=== PATIENT | male | born 1985 | race African-American/Black ===

== ENCOUNTER 2018-05-15 08:43 | Emergency (ER) | payer SELFPAY ==
[~2018-05-15] VITALS: Ht 185.4 cm; Wt 122.5 kg
--- OUTSIDE RECORDS SUMMARY | 2018-05-15 08:49 | XMS REPORT ---
Author Author Clayton Brush [facility] eClinicalWorks Address Unknown Phone Unavailable Care Team Providers Care Agronomist Name Role Phone Clayton Brush CP Unavailable Allergies, Adverse Reactions, Alerts Substance Reaction Event Type N.K.D.A. Info Not Available Non Drug Allergy Problems Problem Type Condition Code Onset Dates Condition Status Assessment Hypertension I10 Active Assessment Elevated blood sugar R73.9 Active Problem Hyperlipidemia E78.5 Active Assessment Hyperlipidemia E78.5 Active Assessment Type 2 diabetes mellitus with hyperglycemia E11.65 Active Medications Medication Code System Code Instructions Start Date End Date Status Dosage MetFORMIN HCl ER [facility] [address]-40 750 MG Orally Once a day August 22, 2015 1 tab(s) Ibuprofen [facility] [address]-31 800 MG Orally Three times a day 1 tablet Amlodipine Besylate [facility] [address]-07 10 mg Orally Once a day 1 tablet Lisinopril-Hydrochlorothiazide [facility] [address]-61 10-12.5 MG Orally Once a day August 22, 2015 1 tablet Lovastatin [facility] [address]-47 20 MG Orally Once a day August 22, 2015 1 tablet with a meal Procedures Procedure Coding System Code Date ESTAB PT LEVEL III CPT-4 58330 August 22, 2015 GLYCOHEMOGLOBIN HGAC CPT-4 13260 August 22, 2015 Vital Signs Date/Time: August 22, 2015 Temperature 98.0 F Weight 328.0 lbs Height 72 in Pain Scale 0 0-10 BMI 44.48 Index Blood Pressure Diastolic 112 mm Hg Blood Pressure Systolic 190 mm Hg Results Name Result Date Reference Range Unit Abnormality Flag Hemoglobin A1c, Fingerstick (waived) ----Hemoglobin A1c 7.9 [id number] 4.0 - 5.6 % Summary Purpose eClinicalWorks Submission
--- OUTSIDE RECORDS SUMMARY | 2018-05-15 08:49 | XMS REPORT ---
Author Author Clayton Brush [facility] eClinicalWorks Address Unknown Phone Unavailable Care Team Providers Care Power Transformer Inspector Name Role Phone Clayton Brush CP Unavailable Allergies, Adverse Reactions, Alerts Substance Reaction Event Type N.K.D.A. Info Not Available Non Drug Allergy Problems Problem Type Condition Code Onset Dates Condition Status Problem Hypertension I10 Active Problem Type 2 diabetes mellitus with hyperglycemia E11.65 Active Problem Diabetes E11.9 Active Assessment Hyperlipidemia E78.5 Active Assessment Type 2 diabetes mellitus with hyperglycemia E11.65 Active Problem Hyperlipidemia E78.5 Active Assessment Hypertension I10 Active Medications Medication Code System Code Instructions Start Date End Date Status Dosage Lisinopril-Hydrochlorothiazide [facility] [place] 2[place] [address]-71 10-12.5 MG Orally Once a day August 22, 2015 1 tablet Lovastatin [facility] [place] 2[place] [address]-41 20 MG Orally Once a day August 22, 2015 1 tablet with a meal Amlodipine Besylate [facility] [place] 2] [address]-94 10 mg Orally Once a day 1 tablet Lisinopril-Hydrochlorothiazide [facility] [place]NOTE 2] [address]-40 20-12.5 MG Orally Once a day 2 tab(s) MetFORMIN HCl ER [facility] [place]NOTE 2] [address]-85 750 MG Orally Once a day August 22, 2015 1 tab(s) Ibuprofen [facility] [place]NOTE 2] [address]-74 800 MG Orally Three times a day 1 tablet Procedures Procedure Coding System Code Date ESTAB PT LEVEL III CPT-4 35086 September 20, 2015 Vital Signs Date/Time: September 20, 2015 Temperature 97.2 F Weight 325.0 lbs Height 72 in Pain Scale 0 0-10 BMI 44.07 Index Blood Pressure Diastolic 130 mm Hg Blood Pressure Systolic 175 mm Hg Results No Known Results Summary Purpose eClinicalWorks Submission
--- OUTSIDE RECORDS SUMMARY | 2018-05-15 08:49 | XMS REPORT ---
Author Author Ronna Loni Organization [facility] Address [address], [place] [id number] Care Team Providers Care Assistant [employer] Delivery Name Role Phone Loni Friend Unavailable PROBLEMS Type Condition ICD9-CM Code [id number] Code Onset Dates Condition Status SNOMED Code Problem Diabetes E11.9 Active 464031563 Problem Hypertension I10 Active 53319356 Assessment Hypertension I10 Jan, Active 18299842 Assessment Encounters for administrative purpose Z02.9 Jan, Active Problem Type 2 diabetes mellitus with hyperglycemia E11.65 Active 087421049856603 Problem Hyperlipidemia E78.5 Active 86426369 ALLERGIES Substance Reaction Event Type Date Status N.K.D.A. Unknown Non Drug Allergy Jan, Unknown SOCIAL HISTORY No smoking Hx information available PLAN OF CARE VITAL SIGNS Height 72 in 2016-02-22 Weight 324 lbs 2016-02-22 Temperature 96.8 degrees Fahrenheit 2016-02-22 BMI 43.94 kg/m2 2016-02-22 Blood pressure systolic 193 mm Hg 2016-02-22 Blood pressure diastolic 114 mm Hg 2016-02-22 MEDICATIONS Medication Instructions Dosage Frequency Start Date End Date Duration Status Lisinopril-Hydrochlorothiazide 10-12.5 MG Orally Once a day 2 tablets 24h Jul, 30 day(s) Active Ibuprofen 800 MG Orally Three times a day 1 tablet 8h 30 days Active Clonidine HCl 0.2 MG Orally One time, now as directed Jan, 1 time Active Amlodipine Besylate 10 mg Orally Once a day 1 tablet 24h 30 days Active Aspirin 325 MG Orally One time, now 1 tablet Jan, 1 time Active Lovastatin 20 MG Orally Once a day 1 tablet with a meal 24h Jul, 30 day(s) Active MetFORMIN HCl ER 750 MG Orally Once a day 1 tab(s) 24h Jul, 30 day(s) Active RESULTS No Results PROCEDURES Procedure Date Ordered Related Diagnosis Body Site ESTAB PT LEVEL IV Feb 22, 2016 IMMUNIZATIONS No Known Immunizations
--- NOTE | 2018-05-15 09:05 | NUR ---
PT TAKEN BACK TO ROOM ON CELL PHONE.
--- NOTE | 2018-05-15 09:35 | ED General ---
General Chief Complaint: Cardiac/General Problems Stated Complaint: HIGH BP Nursing Triage Note: PT CO OF HYPERTENSION, STATES TOOK B/P AT [facility] AND WAS HIGH, PT STATES IS PRESCRIBED PO MEDS FOR B/P BUT IS OUT AND IS NEW IN [place]OWN AND CAN NOT AFFORD MEDS OR DR KENIA. PT INFORMED OF [facility] FOR [facility] INCOME MEDICAL NEEDS Nursing Sepsis Screen: No Definite Risk Source of Information: Patient Exam Limitations: No Limitations History of Present Illness Date Seen by Provider: May 15, 2018 Time Seen by Provider: 09:21 Initial Comments Patient resents to ER by private conveyance with chief complaint of mild shortness of breath and also his blood pressures been high for the past several months. He just recently moved to the area and says that the was on amlodipine and some other blood pressure medicines but he can't afford them and does not have a primary care doctor yet. He is not having any chest pain but his shortness of breath is related to his asthma he has not had an albuterol inhaler for several months. He is not coughing anything up no fevers chills nausea vomiting diarrhea. He does have a history of diabetes. Allergies and Home Medications Allergies Coded Allergies: No Known Drug Allergies (Unverified , 05/15/18) Home Medications No Active Prescriptions or Reported Meds Patient Home Medication List Home Medication List Reviewed: Yes Review of Systems Review of Systems Constitutional: No chills, No fever, No malaise EENTM: No ear discharge, No ear pain Respiratory: No cough, No phlegm; short of breath, wheezing Cardiovascular: No chest pain, No edema Gastrointestinal: No abdominal pain, No nausea, No vomiting Genitourinary: No discharge, No dysuria Past Kwlqfvj-Pedlvc-Ymjhnc Hx Patient Social History Alcohol Use: Denies Use Recreational Drug Use: No Smoking Status: Never a Smoker Recent Foreign Travel: No Contact w/Someone Who Travel: No Recent Infectious Disease Expo: No Recent Hopitalizations: No Physical Abuse: No Sexual Abuse: No Past Medical History Surgeries: No Respiratory: Yes Asthma Cardiac: Yes Hypertension Neurological: No Genitourinary: No Gastrointestinal: No Musculoskeletal: No Endocrine: No HEENT: No Cancer: No Psychosocial: No Integumentary: No Blood Disorders: No Physical Exam Vital Signs Vital Signs - First Documented 05/15/18 05/15/18 09:05 10:00 Temp 97.3 Pulse 96 Resp 18 B/P (MAP) 208/151 (170) Pulse Ox 97 O2 Delivery Room Air Capillary Refill : Less Than 3 Seconds Height, Weight, BMI Height: 6'1.00" Weight: 270lbs. oz. 122.202667xl; BMI Method:Stated General Appearance: No Apparent Distress, WD/WN Eyes: Bilateral Eye Normal Inspection, Bilateral Eye PERRL, Bilateral Eye EOMI HEENT: PERRL/EOMI, Pharynx Normal, Moist Mucous Membranes Neck: Full Range of Motion, Normal Inspection, Non Tender, Supple Respiratory: No Accessory Muscle Use, No Respiratory Distress, Decreased Breath Sounds, Wheezing (scant) Cardiovascular: Regular Rate, Rhythm, No Edema, Normal Peripheral Pulses Gastrointestinal: Normal Bowel Sounds, Non Tender, Soft Progress/Results/Core Measures Suspected Sepsis Recent Fever Within 48 Hours: No Infection Criteria Present: None New/Unexplained Altered Menta: No Sepsis Screen: No Definite Risk SIRS Temperature:97.3 Pulse: 96 Respiratory Rate: 18 Blood Pressure 208 /151 Mean: 170 Results/Orders My Orders Orders - RANJEET SNYDER Amlodipine Tablet (Norvasc Tablet) (05/16/18 09:00) Lisinopril Tablet (Zestril Tablet) (05/15/18 09:45) Albuterol/Ipra Inhalation Soln (Duoneb I (05/15/18 09:45) Svn Small Volume Nebulizer (05/15/18 09:31) Amlodipine Tablet (Norvasc Tablet) (05/15/18 09:41) Amlodipine Tablet (Norvasc Tablet) (05/15/18 09:43) Medications Given in ED Current Medications Medications Dose Ordered Sig/Yordan Route Start Time Stop Time Status Last Admin Dose Admin Albuterol/ Ipratropium 3 ml ONCE ONCE INH 05/15/18 09:45 05/15/18 09:46 DC 05/15/18 10:00 3 ML Lisinopril 20 mg ONCE ONCE PO 05/15/18 09:45 05/15/18 09:46 DC 05/15/18 09:54 20 MG Vital Signs/I&O 05/15/18 05/15/18 09:05 10:00 Temp 97.3 Pulse 96 Resp 18 B/P (MAP) 208/151 (170) Pulse Ox 97 97 O2 Delivery Room Air Capillary Refill : Less Than 3 Seconds Blood Pressure Mean: 170 Progress Note #1: Time: 09:34 Progress Note B/P has come down from 220/160 down to 197/147. Plan to going give him some lisinopril and amlodipine same a prescription for that outpatient. He is asymptomatic hypertension at this point. We'll want to lower this over days to weeks. We've recommended him to [facility]. Finally we will give him a DuoNeb breathing treatment and reexamine him. His breath sounds are not very adventitious on examination. We can make sure he has a prescription for a albuterol inhaler. Progress Note #2: Time: 11:44 Progress Note Blood pressure is 182/124. Patient feels like his shortness of breath has gone away after the nebulized DuoNeb. He does not have a nebulizer at home so we'll send him an MDI albuterol inhaler. We will set him up with some amlodipine and lisinopril 5 and 20 respectively and follow-up next week with [facility]. He is in agreement with this plan. Departure Impression Primary Impression: Hypertension Qualified Codes: I10 - Essential (primary) hypertension Additional Impression: Asthma Qualified Codes: J45.909 - Unspecified asthma, uncomplicated Disposition: 01 HOME, SELF-CARE Condition: Improved Departure-Patient Inst. Decision time for Depature: 11:45 Referrals: NO,LOCAL PHYSICIAN (PCP) Primary Care Physician [facility] Patient Instructions: High Blood Pressure (DC) Add. Discharge Instructions: Use the inhaler 2 puffs every 4 hours as needed for wheezing or coughing or feeling short of breath. 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 All discharge instructions reviewed with patient and/or family. Voiced understanding. Scripts Lisinopril (Lisinopril) 20 Mg Tablet 20 MG PO DAILY for 14 Days, #14 TAB 0 Refills Prov: RANJEET SNYDER 05/15/18 Amlodipine Besylate (Amlodipine Besylate) 5 Mg Tablet 5 MG PO DAILY for 14 Days, #14 TAB 0 Refills Prov: RANJEET SNYDER 05/15/18 Albuterol Sulfate (PROAIR HFA) 1 Puff Puff 2 PUFF IH Q4H, #1 EACH 0 Refills 1 PUFF = 90 MCG Prov: RANJEET SNYDER 05/15/18 Copy Copies To 1: THEODORA MIMS DO RANJEET SNYDER May 15, 2018 09:35
[2018-05-15] MEDS ORDERED: amLODIPine 5 MG (NORVASC) TAB ONE ×2 (09:41→09:43)
[2018-05-15] MEDS ORDERED: lisINopril 20 MG (PRINIVIL) TABLET PO ONE (09:45)
[2018-05-15] MEDS ORDERED: RT-ALBUTEROL/IPRATROPIUM 3 ML (DUONEB) VIAL INH ONE (09:45)
[2018-05-15] MEDS ORDERED: RT-ALBUINH IH (11:47)
[2018-05-15] MEDS ORDERED: LISI-552 PO (11:48)
[2018-05-15] MEDS ORDERED: AMLO5TAB9 PO (11:48)
[2018-05-15 11:55] VITALS: BP 197/145
[2018-05-16] MEDS ORDERED: amLODIPine 5 MG (NORVASC) TAB PO SCH (09:00)
== END 2018-05-15 11:56 | disposition home or self-care (01) ==
LOC: ER 08:45
DX: I10 Essential (primary) hypertension (principal); J45.909 Unspecified asthma, uncomplicated; E11.9 Type 2 diabetes mellitus without complications; Z91.14 Patient's other noncompliance with medication regimen
CPT/HCPCS: 94640; 99283

== ENCOUNTER 2018-05-21 14:06 | Emergency (ER) | payer SELFPAY ==
[~2018-05-21] VITALS: Ht 185.4 cm; Wt 122.5 kg
[~2018-05-21 14:06] MED LIST: AMLO5TAB9 PO; LISI-552 PO; RT-ALBUINH IH
--- NOTE | 2018-05-21 14:15 | ED General ---
General Stated Complaint: KIDNEY PROBLEMS Source of Information: Patient Exam Limitations: No Limitations History of Present Illness Date Seen by Provider: May 21, 2018 Time Seen by Provider: 14:13 Initial Comments To ER per private vehicle with reports of elevated creatinine. He was diagnosed with "kidney problems" about a year ago in [place] where he was from. He since moved down here, followed up with a sticking at [facility] yesterday , had labs drawn and was found to have a creatinine of 6.58 when those labs were resulted today. He states he overall feels pretty well, he does have some swelling to both ankles, occasional shortness of breath. Timing/Duration: 1-2 Days Severity: Moderate Associated Systoms: Denies Symptoms Allergies and Home Medications Allergies Coded Allergies: No Known Drug Allergies (Unverified , 05/15/18) Home Medications Albuterol Sulfate 1 Puff Puff, 2 PUFF IH Q4H 1 PUFF = 90 MCG Prescribed by: RANJEET SNYDER on 05/15/18 1147 Amlodipine Besylate 5 Mg Tablet, 5 MG PO DAILY Prescribed by: RANJEET SNYDER on 05/15/18 1148 Furosemide 20 Mg Tablet, 20 MG PO DAILY Prescribed by: CAYLA KUMAR on 05/21/18 1527 Lisinopril 20 Mg Tablet, 20 MG PO DAILY Prescribed by: RANJEET SNYDER on 05/15/18 1148 Patient Home Medication List Home Medication List Reviewed: Yes Review of Systems Review of Systems Constitutional: see HPI EENTM: see HPI Respiratory: see HPI, dyspnea on exertion Cardiovascular: no symptoms reported Genitourinary: no symptoms reported Musculoskeletal: no symptoms reported Skin: no symptoms reported Psychiatric/Neurological: No Symptoms Reported Hematologic/Lymphatic: No Symptoms Reported Immunological/Allergic: no symptoms reported Past Xcsgilr-Lspshy-Krruwq Hx Patient Social History Recent Hopitalizations: No Past Medical History Surgeries: No Respiratory: Yes Asthma Cardiac: Yes Hypertension Neurological: No Genitourinary: No Gastrointestinal: No Musculoskeletal: No Endocrine: No HEENT: No Cancer: No Psychosocial: No Integumentary: No Blood Disorders: No Physical Exam Vital Signs Vital Signs - First Documented 05/21/18 14:10 Temp 97.4 Pulse 104 Resp 18 B/P (MAP) 207/151 (169) Pulse Ox 100 Capillary Refill : Height, Weight, BMI Height: 6'1.00" Weight: 270lbs. oz. 122.946826rj; BMI Method:Stated General Appearance: No Apparent Distress, WD/WN Eyes: Bilateral Eye Normal Inspection, Bilateral Eye PERRL, Bilateral Eye EOMI HEENT: PERRL/EOMI, TMs Normal Neck: Full Range of Motion, Normal Inspection Respiratory: No Accessory Muscle Use, No Respiratory Distress Cardiovascular: Regular Rate, Rhythm, Normal Peripheral Pulses Gastrointestinal: Normal Bowel Sounds, Non Tender, Soft Extremity: Normal Capillary Refill, Normal Inspection, Other (trace pitting edema bilateral lower extremities) Neurologic/Psychiatric: Alert, Oriented x3, No Motor/Sensory Deficits Skin: Normal Color, Warm/Dry Progress/Results/Core Measures Suspected Sepsis SIRS Temperature: Pulse: Respiratory Rate: Laboratory Tests 05/21/18 14:20: White Blood Count 9.2 Blood Pressure / Mean: Laboratory Tests 05/21/18 14:20: Creatinine 6.63H, Platelet Count 365, Total Bilirubin 0.4 Results/Orders Lab Results Laboratory Tests Test 05/21/18 14:20 Range/Units White Blood Count 9.2 4.3-11.0 10^3/uL Red Blood Count 4.36 4.35-5.85 10^6/uL Hemoglobin 12.7 L 13.3-17.7 G/DL Hematocrit 38 L 40-54 % Mean Corpuscular Volume 87 80-99 FL Mean Corpuscular Hemoglobin 29 25-34 PG Mean Corpuscular Hemoglobin Concent 34 32-36 G/DL Red Cell Distribution Width 15.0 H 10.0-14.5 % Platelet Count 365 130-400 10^3/uL Mean Platelet Volume 11.7 H 7.4-10.4 FL Neutrophils (%) (Auto) 51 42-75 % Lymphocytes (%) (Auto) 36 12-44 % Monocytes (%) (Auto) 8 0-12 % Eosinophils (%) (Auto) 4 0-10 % Basophils (%) (Auto) 1 0-10 % Neutrophils # (Auto) 4.7 1.8-7.8 X 10^3 Lymphocytes # (Auto) 3.3 1.0-4.0 X 10^3 Monocytes # (Auto) 0.8 0.0-1.0 X 10^3 Eosinophils # (Auto) 0.3 0.0-0.3 10^3/uL Basophils # (Auto) 0.1 0.0-0.1 10^3/uL Sodium Level 143 135-145 MMOL/L Potassium Level 4.0 3.6-5.0 MMOL/L Chloride Level 112 H 98-107 MMOL/L Carbon Dioxide Level 22 21-32 MMOL/L Anion Gap 9 5-14 MMOL/L Blood Urea Nitrogen 47 H 7-18 MG/DL Creatinine 6.63 H 0.60-1.30 MG/DL Estimat Glomerular Filtration Rate 12 BUN/Creatinine Ratio 7 Glucose Level 116 H 70-105 MG/DL Calcium Level 9.7 8.5-10.1 MG/DL Corrected Calcium 10.0 8.5-10.1 MG/DL Total Bilirubin 0.4 0.1-1.0 MG/DL Aspartate Amino Transf (AST/SGOT) 14 5-34 U/L Alanine Aminotransferase (ALT/SGPT) 13 0-55 U/L Alkaline Phosphatase 78 40-136 U/L Total Protein 7.7 6.4-8.2 GM/DL Albumin 3.6 3.2-4.5 GM/DL My Orders Orders - CAYLA KUMAR APRN Cbc With Automated Diff (05/21/18 14:09) Comprehensive Metabolic Panel (05/21/18 14:09) Ua Culture If Indicated (05/21/18 14:09) Iv Heplock-Insert (Order) (05/21/18 14:09) Chest 1 View, Ap/Pa Only (05/21/18 14:09) Ekg Tracing (05/21/18 14:09) Continuous Ekg Monitoring (05/21/18 14:09) Amlodipine Tablet (Norvasc Tablet) (05/21/18 14:30) Medications Given in ED Current Medications Medications Dose Ordered Sig/Yordan Route Start Time Stop Time Status Last Admin Dose Admin Amlodipine Besylate 10 mg ONCE ONCE PO 05/21/18 14:30 05/21/18 14:31 DC 05/21/18 14:42 10 MG Vital Signs/I&O 05/21/18 14:10 Temp 97.4 Pulse 104 Resp 18 B/P (MAP) 207/151 (169) Pulse Ox 100 Capillary Refill : Diagnostic Imaging Diagonstic Imaging: Xray Plain Films/CT/US/NM/MRI: chest Comments NAME: RIRI GOEL [facility] REC#: [id number] PT STATUS: REG ER : 1985 PHYSICIAN: CAYLA KUMAR APRN ADMIT DATE: 05/21/18/ER Draft Date of Exam:05/21/18 CHEST 1 VIEW, AP/PA ONLY INDICATION: Shortness of breath. TIME OF EXAM: 02:22 p.m. FINDINGS: The heart appears to be mildly enlarged; however, this could be secondary to portable technique. No infiltrate is detected. The pulmonary vascularity is normal. No infiltrate, effusion or pneumothorax is detected. IMPRESSION: No acute cardiopulmonary process is detected. Dictated on workstation # [id number] Dict: 05/21/18 1443 Trans: 05/21/18 1455 [facility] 0427-3540 Interpreted by: YOSEF BENEDICT MD Electronically signed by: Departure Communication (Admissions) Patient's blood pressure was markedly elevated here at 220/160. He states he's been very hypertensive for quite some time even as far back as when he was in [place]., has been unable to afford his medications. I called [place] [facility], if we fax his face sheet and labs to him, they're clinical audiologist will review this and they will call the patient after Friday to make an appointment for follow-up. At this time he does not have any indications for transfer for emergent dialysis, no fluid overload hyperkalemia or signs of uremic encephalopathy as such we'll discharge home with antihypertensive medication, follow-up with [facility]. I will also notify [facility] of this plan. He was given a prescription for lisinopril and amlodipine about 6 days ago here. We will have him continue that. Ill add a loop diuretic. OLGA LIDIA Peck at [facility] notified of plan. 1542-I discussed the case with Dr. May student dean from [facility]. Recommends stopping the lisinopril. Use minoxidil 5 mg by mouth twice a day in addition to the Norvasc and Lasix 40 mg daily, repeat labs on Friday, no NSAID use. Her office will call him on Friday for an appointment time on Friday. Impression Primary Impression: Chronic kidney disease Qualified Codes: N18.9 - Chronic kidney disease, unspecified Additional Impression: Hypertension Qualified Codes: I10 - Essential (primary) hypertension Disposition: HOME, SELF-CARE Condition: Stable Departure-Patient Inst. Decision time for Depature: 15:26 Referrals: NO,LOCAL PHYSICIAN (PCP) Primary Care Physician Patient Instructions: Chronic Kidney Disease, High Blood Pressure (DC) Add. Discharge Instructions: I spoke with Dr. May, a kidney specialist in [place]. Her office will call you Friday to make an appointment to be seen on Friday. In the meantime, stop taking the lisinopril. You should have repeat blood work done here on Friday, your appointment will be Friday. We are starting to new medications in the meantime, minoxidil 5 mg twice a day and Lasix 40 mg daily in addition to the Norvasc. Stop taking the lisinopril. Do not use any NSAIDs such as meloxicam , naproxen, aspirin, ibuprofen Celebrex. Return to ER for any concerns. Scripts Minoxidil (Minoxidil) 10 Mg Tab 0.5 MG PO BID, #30 TAB Prov: CAYLA KUMAR APRN 05/21/18 Lisinopril (Lisinopril) 20 Mg Tablet 20 MG PO DAILY for 30 Days, #14 TAB 0 Refills take 40mg daily Prov: CAYLA KUMAR APRN 05/21/18 Furosemide (Lasix) 20 Mg Tablet 20 MG PO DAILY, #10 TAB Prov: CAYLA KUMAR APRN 05/21/18 Copy Copies To 1: THEODORA MIMS PETER J APRN May 21, 2018 14:15
[2018-05-21 14:30] LABS: BASOPHILS # (AUTO) 0.1 10^3/uL (0.0-0.1); BASOPHILS % (AUTO) 1 % (0-10); EOSINOPHILS # (AUTO) 0.3 10^3/uL (0.0-0.3); EOSINOPHILS % (AUTO) 4 % (0-10); HEMATOCRIT 38 % (40-54); HEMOGLOBIN 12.7 G/DL (13.3-17.7); LYMPHOCYTES # (AUTO) 3.3 X 10^3 (1.0-4.0); LYMPHOCYTES % (AUTO) 36 % (12-44); MEAN CORPUSCULAR HEMOGLOBIN 29 PG (25-34); MEAN CORPUSCULAR HGB CONC 34 G/DL (32-36); MEAN CORPUSCULAR VOLUME 87 FL (80-99); MEAN PLATELET VOLUME 11.7 FL (7.4-10.4); MONOCYTES # (AUTO) 0.8 X 10^3 (0.0-1.0); MONOCYTES % (AUTO) 8 % (0-12); NEUTROPHILS # (AUTO) 4.7 X 10^3 (1.8-7.8); NEUTROPHILS % (AUTO) 51 % (42-75); PLATELET COUNT 365 10^3/uL (130-400); WHITE BLOOD COUNT 9.2 10^3/uL (4.3-11.0)
[2018-05-21] MEDS ORDERED: amLODIPine 10 MG (NORVASC) TAB PO ONE (14:30)
[2018-05-21 14:46] LABS: ALBUMIN 3.6 GM/DL (3.2-4.5); BILIRUBIN,TOTAL 0.4 MG/DL (0.1-1.0); CALCIUM 9.7 MG/DL (8.5-10.1); CREATININE SERUM 6.63 MG/DL (0.60-1.30); TOTAL PROTEIN 7.7 GM/DL (6.4-8.2)
--- NOTE | 2018-05-21 14:56 | Diagnostic Imaging Report ---
INDICATION: Shortness of breath. TIME OF EXAM: 02:22 p.m. FINDINGS: The heart appears to be mildly enlarged; however, this could be secondary to portable technique. No infiltrate is detected. The pulmonary vascularity is normal. No infiltrate, effusion or pneumothorax is detected. IMPRESSION: No acute cardiopulmonary process is detected. Dictated by: Dictated on workstation # [id number]
[2018-05-21] MEDS ORDERED: FURO-125 PO (15:27)
[2018-05-21] MEDS ORDERED: LISI-552 PO (15:44)
[2018-05-21] MEDS ORDERED: NF-MINO10T PO (15:44)
[2018-05-21 16:00] LABS: BILIRUBIN,URINE NEGATIVE (NEGATIVE); CLARITY,URINE CLEAR; COLOR,URINE YELLOW; GLUCOSE, URINE (UA) NEGATIVE (NEGATIVE); KETONES,URINE NEGATIVE (NEGATIVE); LEUKOCYTE ESTERASE ,URINE NEGATIVE (NEGATIVE); NITRITE,URINE NEGATIVE (NEGATIVE); PH,URINE 6 (5-9); PROTEIN,URINE 4+ (NEGATIVE); UROBILINOGEN,URINE NORMAL (NORMAL)
[2018-05-21 16:04] VITALS: BP 176/129
[2018-05-21 16:14] LABS: BACTERIA,URINE FEW /HPF
== END 2018-05-21 16:03 | disposition home or self-care (01) ==
LOC: EDUNIT# 14:06 → ER 14:07
DX: I12.9 Hypertensive chronic kidney disease with stage 1 through stage 4 chronic kidney disease, or unspecified chronic kidney disease (principal); N18.9 Chronic kidney disease, unspecified; J45.909 Unspecified asthma, uncomplicated
CPT/HCPCS: 36415; 71045; 80053; 81000; 85025; 87088; 93005

== ENCOUNTER 2018-05-24 15:21 | Emergency (ER) | payer SELFPAY ==
[~2018-05-24] VITALS: Ht 185.4 cm; Wt 124.7 kg
[~2018-05-24 15:21] MED LIST changes: +FURO-125 PO; +NF-MINO10T PO
--- NOTE | 2018-05-24 15:21 | NUR ---
1520 STROKE ACTIVATION 1525 PT TO CART AND TO CT. 1430 LAST KNOWN WELL TIME
--- NOTE | 2018-05-24 15:42 | ED Neurological Problem ---
General Stated Complaint: STROKE Source: patient, EMS Exam Limitations: no limitations History of Present Illness Date Seen by Provider: May 24, 2018 Time Seen by Provider: 15:15 Initial Comments Patient presents to the ER by EMS with chief complaint of abrupt onset of right sided weakness inability to stand up and slurred garbled speech. No facial droop per EMS. His right hand and right leg were unable to move spontaneously. He does have a history of very high lead pressure for which she was started on lisinopril a few weeks ago in the ER. He follows up at [facility] once and had plans to do dialysis temporarily. He also has a history of diabetes. No history of stroke or heart attacks. Significant family history for diabetes and heart attacks. He was sitting at a [employer] in the dining room and was unable to get up so [employer] employees called 911. Last known well time is 1430. Patient says he has not taken his lisinopril since . EMS reports a blood pressure 156/120. Allergies and Home Medications Allergies Coded Allergies: No Known Drug Allergies (Unverified , 05/15/18) Home Medications Albuterol Sulfate 1 Puff Puff, 2 PUFF IH Q4H 1 PUFF = 90 MCG Prescribed by: RANJEET SNYDER on 05/15/18 1147 Amlodipine Besylate 5 Mg Tablet, 5 MG PO DAILY Prescribed by: RANJEET SNYDER on 05/15/18 1148 Furosemide 20 Mg Tablet, 20 MG PO DAILY Prescribed by: CAYLA KUMAR on 05/21/18 1527 Lisinopril 20 Mg Tablet, 20 MG PO DAILY take 40mg daily Prescribed by: CAYLA KUMAR on 05/21/18 1544 Minoxidil 10 Mg Tab, 0.5 MG PO BID Prescribed by: CAYLA KUMAR on 05/21/18 1544 Patient Home Medication List Home Medication List Reviewed: Yes Review of Systems Review of Systems Constitutional: No chills, No diaphoresis, No fever, No malaise Eyes: Denies Blindness, Denies Blurred Vision, Denies Drainage Ears, Nose, Mouth, Throat: denies ear pain, denies ear discharge Respiratory: No cough, No short of breath Cardiovascular: No chest pain, No edema Gastrointestinal: No abdominal pain, No constipation, No diarrhea Genitourinary: No discharge, No dysuria Past Rejvxxj-Qafspy-Npzbyt Hx Patient Social History Recent Hopitalizations: No Past Medical History Surgeries: No Respiratory: Yes Asthma Cardiac: Yes Hypertension Neurological: No Genitourinary: No Gastrointestinal: No Musculoskeletal: No Endocrine: No HEENT: No Cancer: No Psychosocial: No Integumentary: No Blood Disorders: No Physical Exam Vital Signs Vital Signs - First Documented 05/24/18 15:25 Temp 97.9 Pulse 104 Resp 13 B/P (MAP) 227/164 (185) Pulse Ox 100 Capillary Refill : Height, Weight, BMI Height: 6'1.00" Weight: 270lbs. oz. 122.363843wo; BMI Method:Stated General Appearance: WD/WN, mild distress HEENT: PERRL/EOMI, normal ENT inspection, TMs normal, pharynx normal Neck: non-tender, full range of motion, supple, normal inspection Respiratory: lungs clear, normal breath sounds, no respiratory distress, no accessory muscle use Cardiovascular: normal peripheral pulses, regular rate, rhythm, no edema Peripheral Pulses: 2+ Dorsalis Pedis (R), 2+ Left Dors-Pedis (L), 2+ Radial Pulses (R), 2+ Radial Pulses (L) Gastrointestinal: normal bowel sounds, non tender, soft Neurologic/Psychiatric: alert, normal mood/affect, oriented x 3 Crainal Nerves: normal hearing, PERRL, abnormal speech; No facial asymmetry Coordination/Gait: normal finger to nose (left hand and left heel to jay normal) Motor/Sensory: pronator drift (R) (upper and lower extremity), sensory deficit (decreased sensation in upper and lower right extremity), weak motor strength RUE, weak motor strength RLE Skin: normal color, warm/dry Stroke Onset of Symptoms Date of Onset of Symptoms: May 24, 2018 Time of Symptom Onset: 14:30 Onset of Symptoms: Yes Symptoms onset unknown: No NIH Stroke Scale Assessment Select: Initial Level of Consciousness: 0=Alert (0), Level of Consciousness- Questions: 0=Answers both month/age (0), LOC Commands: 0=Performs both tasks (0) , Gaze: Normal (0), Visual Tao: 0=No visual loss (0), Facial Movement ( Facial Paresis): 0=Normal symmetrical mnt (0), Motor Function-Arms Right: 1= Drift (1), Motor Function-Arms Left: 0=No drift (0), Motor Function-Legs Right: 2=Some effort/gravity (2), Motor Function-Legs Left: 0=No drift (0), Limb Ataxia : 0=Absent (0), Sensory: 2=Severe to total loss (2), Best Language: 0=No aphasia (0), Dysarthria: 1=Mild to moderate loss (1), Extinction & Inattention: 0=No abnormality (0), Total: 6 Stroke Thrombolytic Exclusion Age 18 or Over: Yes Acute intenal hemorrhage: No History of CVA: No Uncontrolled Coagulation Defec: No Intracranial Hemorrhage: No Severe Hypertension: Yes GI or Bleed: No Subarachnoid Hemorrhage: No Intracranial Neoplasm/Aneurysm: No Oral Anticoagulants: No Surgery or Trauma: No Puncture of Non-Compressible V: No Recent CPR: No Diabetic Hemorrhagic Retinopat: No Organ Biopsy: No Recent Obstetric Delivery: No Glucose: No (178) Significant Hepatic Dysfunctio: No NIH Stoke Scale >22: No Bacterial Endocarditis: No Pericarditis: No Improving Symptoms: Yes TPA Contraindication: No Progress/Results/Core Measures Results/Orders Lab Results Laboratory Tests Test 05/24/18 15:56 05/24/18 18:37 Range/Units White Blood Count 7.8 4.3-11.0 10^3/uL Red Blood Count 4.52 4.35-5.85 10^6/uL Hemoglobin 13.1 L 13.3-17.7 G/DL Hematocrit 39 L 40-54 % Mean Corpuscular Volume 87 80-99 FL Mean Corpuscular Hemoglobin 29 25-34 PG Mean Corpuscular Hemoglobin Concent 33 32-36 G/DL Red Cell Distribution Width 14.9 H 10.0-14.5 % Platelet Count 356 130-400 10^3/uL Mean Platelet Volume 11.8 H 7.4-10.4 FL Neutrophils (%) (Auto) 54 42-75 % Lymphocytes (%) (Auto) 34 12-44 % Monocytes (%) (Auto) 8 0-12 % Eosinophils (%) (Auto) 3 0-10 % Basophils (%) (Auto) 1 0-10 % Neutrophils # (Auto) 4.2 1.8-7.8 X 10^3 Lymphocytes # (Auto) 2.7 1.0-4.0 X 10^3 Monocytes # (Auto) 0.7 0.0-1.0 X 10^3 Eosinophils # (Auto) 0.2 0.0-0.3 10^3/uL Basophils # (Auto) 0.1 0.0-0.1 10^3/uL Prothrombin Time 15.2 H 12.2-14.7 SEC INR Comment 1.2 0.8-1.4 Activated Partial Thromboplast Time 48 H 24-35 SEC D-Dimer 1.52 H 0.00-0.49 UG/ML Sodium Level 144 135-145 MMOL/L Potassium Level 4.2 3.6-5.0 MMOL/L Chloride Level 109 H 98-107 MMOL/L Carbon Dioxide Level 19 L 21-32 MMOL/L Anion Gap 16 H 5-14 MMOL/L Blood Urea Nitrogen 41 H 7-18 MG/DL Creatinine 6.81 H 0.60-1.30 MG/DL Estimat Glomerular Filtration Rate 11 BUN/Creatinine Ratio 6 Glucose Level 159 H 70-105 MG/DL Calcium Level 9.1 8.5-10.1 MG/DL Corrected Calcium 9.3 8.5-10.1 MG/DL Total Bilirubin 0.4 0.1-1.0 MG/DL Aspartate Amino Transf (AST/SGOT) 20 5-34 U/L Alanine Aminotransferase (ALT/SGPT) 17 0-55 U/L Alkaline Phosphatase 79 40-136 U/L Troponin I 0.120 H <0.028 NG/ML Total Protein 7.9 6.4-8.2 GM/DL Albumin 3.8 3.2-4.5 GM/DL Urine Color YELLOW Urine Clarity CLEAR Urine pH 6.5 5-9 Urine Specific [place] 1.010 L 1.016-1.022 Urine Protein 4+ NEGATIVE Urine Glucose (UA) NEGATIVE NEGATIVE Urine Ketones NEGATIVE NEGATIVE Urine Nitrite NEGATIVE NEGATIVE Urine Bilirubin NEGATIVE NEGATIVE Urine Urobilinogen NORMAL NORMAL MG/DL Urine Leukocyte Esterase NEGATIVE NEGATIVE Urine RBC (Auto) 3+ H NEGATIVE Urine RBC 0-2 /HPF Urine WBC RARE /HPF Urine Squamous Epithelial Cells RARE /HPF Urine Crystals NONE /LPF Urine Bacteria TRACE /HPF Urine Casts NONE /LPF Urine Mucus NEGATIVE /LPF Urine Culture Indicated NO My Orders Orders - RANJEET SNYDER Cbc With Automated Diff (05/24/18 15:26) Protime With Inr (05/24/18 15:26) Partial Thromboplastin Time (05/24/18 15:26) Comprehensive Metabolic Panel (05/24/18:) Fibrin Degradation Products (05/24/18:) Troponin I (05/24/18:) Ua Culture If Indicated (05/24/18:) Chest 1 View, Ap/Pa Only (05/24/18 15:) Ekg Tracing (05/24/18:) Nothing By Mouth (05/24/18 Dinner) Accucheck Stat ONCE (05/24/18:) Saline Lock/Iv-Start (05/24/18 15:) Saline Lock/Iv-Start (05/24/18 15:) Vital Signs Stroke Patient Q15M (05/24/18 15:26) Ct Head Wo-R/O Stroke (05/24/18 15:26) O2 (05/24/18 15:) Intake & Output 06,14,22 (05/24/18 15:26) Monitor-Rhythm Ecg Trace Only (05/24/18 15:26) Dysphagia Screening Tool (05/24/18 15:) Post Thrombolytic Adminstratio (05/24/18 15:26) Lipid Panel (05/25/18 06:00) Labetalol Injection (Normodyne Injection (05/24/18 16:15) Labetalol Injection (Normodyne Injection (05/24/18 16:02) Labetalol Injection (Normodyne Injection (05/24/18 16:30) Alteplase (Activase) (Activase Injection (05/24/18 16:56) Ct Head Wo-R/O Stroke (05/24/18 18:10) Ns (Ivpb) (Sodium C... W/Nicardipine Iv (05/24/18 18:30) Ns (Ivpb) (Sodium Chloride 0.9%) (05/24/18 18:48) Nicardipine Iv For Drip (Cardene I.V. (O (05/24/18 18:48) Drug Screen Stat (Urine) (05/24/18 19:19) Medications Given in ED Current Medications Medications Dose Ordered Sig/Yordan Route Start Time Stop Time Status Last Admin Dose Admin Alteplase, Recombinant 100 mg STK-MED ONCE IV 05/24/18 16:56 05/24/18 16:58 DC 05/24/18 17:07 100 MG Labetalol HCl 10 mg ONCE ONCE IV 05/24/18 16:15 05/24/18 16:16 DC 05/24/18 16:05 10 MG Labetalol HCl 10 mg ONCE ONCE IV 05/24/18 16:30 05/24/18 16:31 DC 05/24/18 16:32 10 MG Vital Signs/I&O 05/24/18 15:25 Temp 97.9 Pulse 104 Resp 13 B/P (MAP) 227/164 (185) Pulse Ox 100 Progress Progress Note #1: Time: 17:09 Progress Note After 20 mg of labetalol his blood pressures 160/107 his NIH is still 6 points with the same deficits stable. Patient's having no pain. We will keep his blood pressure below 185/110 with labetalol and after having a long discussion about the risks, benefits and alternatives to TPA the patient has consented to do the TPA. Progress Note #2: Time: 18:13 Progress Note Patient had incontinence of urine when he first came here and this is the second time he said crepitance of urine. Nursing staff noticed that his symptoms had improved significantly within 20 minutes of starting TPA but now his right side is getting less coordinated and he's having drift again in his right arm but not his right leg. He does have 4 out of 5 motor strength on the right lower extremity compared to left. His right face now show some facial droop. His speech is no clear than it was before. After TPA was initiated his NIH was effectively 0 however now it is back up to 4. We will repeat a CT of the head to rule out a bleed. He does have some bleeding in his mouth that he denies any seizures, reads of unconsciousness shaking. He says he has an impacted wisdom tooth back on the left and on examination of his mouth or does seem to be blood coming from his wisdom tooth probably secondary to the TPA. Initial ECG Impression Date: May 24, 2018 Initial ECG Impression Time: 15:40 Initial ECG Rate: 104 Initial ECG Rhythm: S.Tach Initial ECG Intervals: Normal Initial ECG Impression: Normal, Nonspecific Changes Comment No significant ST elevation or depression. Diagnostic Imaging Diagonstic Imaging: CT Plain Films/CT/US/NM/MRI: head Comments [facility]. [place], [place] NAME: RIRI GOEL [facility] REC#: [id number] PT STATUS: REG ER : 1985 PHYSICIAN: RANJEET SNYDER MD ADMIT DATE: 05/24/18/ER Draft Date of Exam:05/24/18 CT HEAD WO-R/O STROKE PROCEDURE: CT head without contrast, r/o stroke. TECHNIQUE: Multiple contiguous axial images were obtained through the brain without the use of intravenous contrast. Auto Exposure Controls were utilized during the CT exam to meet ALARA standards for radiation dose reduction. DATE: May 24, 2018. COMPARISON: None. INDICATION: 32-year-old male, right-sided weakness, slurred speech and hypertension. FINDINGS: There is low attenuation in the left walker radiata as well as in the right subcortical and periventricular white matter. This is not of CSF attenuation. There are additional areas of low attenuation in the region of the bilateral basal ganglia. The ventricles and cerebral spinal fluid spaces are of normal size and configuration for the patient's age. There is no mass effect or midline shift. There is no acute intracranial hemorrhage. There is no abnormal extra-axial fluid collection. The visualized portions of the paranasal sinuses, mastoid air cells and middle ears are well aerated. IMPRESSION: 1. Abnormal low attenuation in the left walker radiata, right subcortical and periventricular white matter, bilateral basal ganglia, which are nonspecific. Findings potentially could reflect advanced microvascular changes, vasculitis. Areas of infarct would be difficult to exclude. Recommend MRI brain for further assessment. 2. No evidence of acute intracranial hemorrhage. Findings called at 1539 hours on May 24, 2018. Dictated on workstation # [id number] Dict: 05/24/18 1537 Trans: 05/24/18 1550 PJE [id number] Interpreted by: DELIA LIMA MD Electronically signed by: Reviewed: Reviewed by Me Diagonstic Imaging: Xray Plain Films/CT/US/NM/MRI: chest (1v) Comments [facility] [place] [place] NAME: RIRI GOEL [facility] REC#: [id number] PT STATUS: REG ER : 1985 PHYSICIAN: RANJEET SNYDER MD ADMIT DATE: 05/24/18/ER Draft Date of Exam:05/24/18 CHEST 1 VIEW, AP/PA ONLY INDICATION: Right-sided weakness, hypertension, slurred speech.. TECHNIQUE: Single view chest 4:11 p.m. CORRELATION STUDY: 05/21/2018. FINDINGS: Unchanged cardiac enlargement. Vasculature remains prominent. Lungs are generally clear of infiltrate. IMPRESSION: 1. Stable cardiac enlargement with vasculature slightly increased from prior study. Dictated on workstation # [id number] Dict: 05/24/18 1622 Trans: 05/24/18 1628 [facility] [id number] Interpreted by: PATRICIA JOE DO Electronically signed by: Reviewed: Reviewed by Me Diagonstic Imaging: CT (without contrast) Plain Films/CT/US/NM/MRI: head Comments NAME: RIRI GOEL [facility] REC#: [id number] PT STATUS: REG ER : 1985 PHYSICIAN: RANJEET SNYDER MD ADMIT DATE: 05/24/18/ER Draft Date of Exam:05/24/18 CT HEAD WO-R/O STROKE PROCEDURE: CT head without contrast, r/o stroke. TECHNIQUE: Multiple contiguous axial images were obtained through the brain without the use of intravenous contrast. Auto Exposure Controls were utilized during the CT exam to meet ALARA standards for radiation dose reduction. INDICATION: CVA. Status post TPA. FINDINGS: The ventricles are normal in size, shape and position. There is no acute parenchymal hemorrhage, edema or mass. There are several vague low density areas in the periventricular white matter. There is no extra-axial mass or hemorrhage. There is no change from the exam performed earlier on 05/24/2018. IMPRESSION: Stable CT of the head. Dictated on workstation # [id number] Dict: 05/24/18 1827 Trans: 05/24/18 1832 [facility] [id number] Interpreted by: CEE BOWSER MD Electronically signed by: Reviewed: Reviewed by Me Departure Impression Primary Impression: Cerebrovascular accident due to cerebral artery occlusion Additional Impressions: tPA adm status 24 hr [employer] Chronic kidney disease, stage V Hypertension Qualified Codes: I10 - Essential (primary) hypertension Disposition: 02 XFER SHT-TRM HOSP ([facility]) Condition: Stable Transfer Time Spoke to Accepting Phy: 18:30 Transfer Progress Notes Discussed the case multiple times with Dr. Arias throughout the patient's care and he made initial recommendations that if treating the blood pressure did not resolve some of the symptoms we should start TPA. We then started TPA completed it within 20-30 minutes of starting with Improvement in his symptoms but they came back shortly after stopping TPA NIH 4. Repeat CT brain w/o contrast did not demonstrate anything new. Then discussed transport up to [facility] and the patient was accepted by Dr. Arias. Patient's inappropriate stay here because of his creatinine of 6.8. 1845: Discussed the case with Dr. Morel, neuro ICU. He agrees with using a drip if the blood pressure stays consistently over 180. Transfer Time: 19:30 Transfer Facility: [facility] ED Method of Transfer: EMS Departure-Patient Inst. Referrals: NO,LOCAL PHYSICIAN (PCP/Family) Primary Care Physician RANJEET SNYDER May 24, 2018 15:42
--- NOTE | 2018-05-24 15:51 | Diagnostic Imaging Report ---
PROCEDURE: CT head without contrast, r/o stroke. TECHNIQUE: Multiple contiguous axial images were obtained through the brain without the use of intravenous contrast. Auto Exposure Controls were utilized during the CT exam to meet ALARA standards for radiation dose reduction. DATE: May 24, 2018. COMPARISON: None. INDICATION: 32-year-old male, right-sided weakness, slurred speech and hypertension. FINDINGS: There is low attenuation in the left walker radiata as well as in the right subcortical and periventricular white matter. This is not of CSF attenuation. There are additional areas of low attenuation in the region of the bilateral basal ganglia. The ventricles and cerebral spinal fluid spaces are of normal size and configuration for the patient's age. There is no mass effect or midline shift. There is no acute intracranial hemorrhage. There is no abnormal extra-axial fluid collection. The visualized portions of the paranasal sinuses, mastoid air cells and middle ears are well aerated. IMPRESSION: 1. Abnormal low attenuation in the left walker radiata, right subcortical and periventricular white matter, bilateral basal ganglia, which are nonspecific. Findings potentially could reflect advanced microvascular changes, vasculitis. Areas of infarct would be difficult to exclude. Recommend MRI brain for further assessment. 2. No evidence of acute intracranial hemorrhage. Findings called at 1539 hours on May 24, 2018. Dictated by: Dictated on workstation # [id number]
[2018-05-24 16:02] LABS: BASOPHILS # (AUTO) 0.1 10^3/uL (0.0-0.1); BASOPHILS % (AUTO) 1 % (0-10); EOSINOPHILS # (AUTO) 0.2 10^3/uL (0.0-0.3); EOSINOPHILS % (AUTO) 3 % (0-10); HEMATOCRIT 39 % (40-54); HEMOGLOBIN 13.1 G/DL (13.3-17.7); LYMPHOCYTES # (AUTO) 2.7 X 10^3 (1.0-4.0); LYMPHOCYTES % (AUTO) 34 % (12-44); MEAN CORPUSCULAR HEMOGLOBIN 29 PG (25-34); MEAN CORPUSCULAR HGB CONC 33 G/DL (32-36); MEAN CORPUSCULAR VOLUME 87 FL (80-99); MEAN PLATELET VOLUME 11.8 FL (7.4-10.4); MONOCYTES # (AUTO) 0.7 X 10^3 (0.0-1.0); MONOCYTES % (AUTO) 8 % (0-12); NEUTROPHILS # (AUTO) 4.2 X 10^3 (1.8-7.8); NEUTROPHILS % (AUTO) 54 % (42-75); PLATELET COUNT 356 10^3/uL (130-400); RED CELL DISTRIBUTION WIDTH 14.9 % (10.0-14.5); WHITE BLOOD COUNT 7.8 10^3/uL (4.3-11.0)
[2018-05-24] MEDS ORDERED: LABETALOL HCL 20 MG/4 ML VIAL ONE (16:02)
[2018-05-24 16:14] LABS: FIBRIN DEGRADATION PRODUCTS 1.52 UG/ML (0.00-0.49); INR 1.2 (0.8-1.4); PROTHROMBIN TIME PATIENT 15.2 SEC (12.2-14.7)
[2018-05-24] MEDS ORDERED: LABETALOL HCL 20 MG/4 ML VIAL IV ONE ×2 (16:15→16:30)
[2018-05-24 16:20] LABS: ALBUMIN 3.8 GM/DL (3.2-4.5); BILIRUBIN,TOTAL 0.4 MG/DL (0.1-1.0); CALCIUM 9.1 MG/DL (8.5-10.1); CREATININE SERUM 6.81 MG/DL (0.60-1.30); POTASSIUM 4.2 MMOL/L (3.6-5.0); TOTAL PROTEIN 7.9 GM/DL (6.4-8.2)
--- NOTE | 2018-05-24 16:29 | Diagnostic Imaging Report ---
INDICATION: Right-sided weakness, hypertension, slurred speech.. TECHNIQUE: Single view chest 4:11 p.m. CORRELATION STUDY: 05/21/2018. FINDINGS: Unchanged cardiac enlargement. Vasculature remains prominent. Lungs are generally clear of infiltrate. IMPRESSION: 1. Stable cardiac enlargement with vasculature slightly increased from prior study. Dictated by: Dictated on workstation # [id number]
--- NOTE | 2018-05-24 16:30 | NUR ---
PT INC OF URINE STATES HAD ACCIDENT
[2018-05-24] MEDS ORDERED: ALTEPLASE 100 MG/VIAL (ACTIVASE) IV ONE (16:56)
--- NOTE | 2018-05-24 17:20 | NUR ---
PT ABLE TO MOVE R ARM AND LEG, ABLE TO DO HEEL-ARMSTRONG TASK. SQUEEZE R HAND.
--- NOTE | 2018-05-24 18:11 | NUR ---
PT INC OF URINE, PT SPEECH MORE SLURRED AT THIS X. PT HAS SL DROOPING OF R EYE NOTED. PT CONT TO BE ABLE TO MOVE R ARM AND R LEG BUT CONT TO HAVE WEAKNESS
--- NOTE | 2018-05-24 18:20 | NUR ---
PT TO CT PER CART D/T FACIAL DROOPING AND SL INCREASE IN SLURRED SPEECH
[2018-05-24] MEDS ORDERED: niCARdipine IV 50 MG in NS (IVPB) 230 ML IV SCH (18:30)
--- NOTE | 2018-05-24 18:30 | NUR ---
BACK TO ROOM
--- NOTE | 2018-05-24 18:32 | Diagnostic Imaging Report ---
PROCEDURE: CT head without contrast, r/o stroke. TECHNIQUE: Multiple contiguous axial images were obtained through the brain without the use of intravenous contrast. Auto Exposure Controls were utilized during the CT exam to meet ALARA standards for radiation dose reduction. INDICATION: CVA. Status post TPA. FINDINGS: The ventricles are normal in size, shape and position. There is no acute parenchymal hemorrhage, edema or mass. There are several vague low density areas in the periventricular white matter. There is no extra-axial mass or hemorrhage. There is no change from the exam performed earlier on 05/24/2018. IMPRESSION: Stable CT of the head. Dictated by: Dictated on workstation # [id number]
--- NOTE | 2018-05-24 18:36 | NUR ---
EMS NOTIFIED FOR TRANSFER TO
[2018-05-24 18:43] LABS: BILIRUBIN,URINE NEGATIVE (NEGATIVE); CLARITY,URINE CLEAR; COLOR,URINE YELLOW; GLUCOSE, URINE (UA) NEGATIVE (NEGATIVE); KETONES,URINE NEGATIVE (NEGATIVE); LEUKOCYTE ESTERASE ,URINE NEGATIVE (NEGATIVE); NITRITE,URINE NEGATIVE (NEGATIVE); PH,URINE 6.5 (5-9); PROTEIN,URINE 4+ (NEGATIVE); UROBILINOGEN,URINE NORMAL (NORMAL)
--- NOTE | 2018-05-24 18:43 | NUR ---
CONSENT FOR TRANSFER SIGNED
[2018-05-24] MEDS ORDERED: NS (IVPB) 250 ML ONE (18:48)
[2018-05-24] MEDS ORDERED: niCARdipine IV FOR DRIP 50 MG KIT ONE (18:48)
[2018-05-24 18:50] LABS: BACTERIA,URINE TRACE /HPF; RBC,URINE 0-2 /HPF; SQUAMOUS EPITHELIAL CELL,UR RARE /HPF; WBC,URINE RARE /HPF
--- NOTE | 2018-05-24 19:00 | NUR ---
REPORT TO ROBERT DUGGAN
--- NOTE | 2018-05-24 19:00 | NUR ---
REPORT TO ED OLGA LIDIA COKER
[2018-05-24 19:31] VITALS: BP 143/75
[2018-05-24 19:57] LABS: AMPHETAMINE SCREEN, URINE NEGATIVE (NEGATIVE); BARBITURATE SCREEN URINE NEGATIVE (NEGATIVE); BENZODIAZEPINES SCREEN URINE NEGATIVE (NEGATIVE); CANNABINOID SCREEN, URINE NEGATIVE (NEGATIVE); COCAINE SCREEN URINE NEGATIVE (NEGATIVE); METHADONE STAT NEGATIVE (NEGATIVE); METHAMPHETAMINE SCREEN URINE S NEGATIVE (NEGATIVE); OPIATE SCREEN URINE NEGATIVE (NEGATIVE); OXYCODONE STAT NEGATIVE (NEGATIVE); PROPOXYPHENE STAT NEGATIVE (NEGATIVE); TRICYCLIC ANTIDEPRESSANTS SCRE NEGATIVE (NEGATIVE)
== END 2018-05-24 19:31 | disposition short-term general hospital (02) ==
LOC: EDUNIT# 15:21 → ER 15:23
DX: I63.50 Cerebral infarction due to unspecified occlusion or stenosis of unspecified cerebral artery (principal); E11.22 Type 2 diabetes mellitus with diabetic chronic kidney disease; I12.0 Hypertensive chronic kidney disease with stage 5 chronic kidney disease or end stage renal disease; N18.5 Chronic kidney disease, stage 5; J45.909 Unspecified asthma, uncomplicated; I10 Essential (primary) hypertension; Z82.49 Family history of ischemic heart disease and other diseases of the circulatory system; Z92.82 Status post administration of tPA (rtPA) in a different facility within the last 24 hours prior to admission to current facility
CPT/HCPCS: 36415; 70450; 71045; 80053; 80306; 81000; 84484; 85025; 85379; 85610; 85730; 93005; 93041; 96365; 96375